=== PATIENT | female | born 1950 | race Caucasian/White ===

== ENCOUNTER 2023-08-19 09:08 | Outpatient (CLI) | payer MEDICARE ==
[2023-08-19] MEDS ORDERED: Magnevist 469MG/ML 20 ML VIAL ONE (11:09)
== END 2023-08-19 09:09 | disposition home or self-care (01) ==
LOC: BICMRI 09:08
PROVIDERS: ATTEND Psychiatry & Neurology Neurology
DX: R25.1 Tremor, unspecified (principal); I67.89 Other cerebrovascular disease
CPT/HCPCS: 70553; A9579